=== PATIENT | female | born 1955 | race Caucasian/White ===

== ENCOUNTER 2022-09-17 06:13 | Emergency (ER) | payer MEDICARE ==
[~2022-09-17] VITALS: Ht 154.9 cm; Wt 84.0 kg
[2022-09-17 06:19] VITALS: BP 167/97
[2022-09-17] MEDS ORDERED: CLEOCIN300 MG PO (06:26)
[2022-09-17] MEDS ORDERED: LORTAB 1010 MG PO (06:26)
[2022-09-17 06:30] VITALS: BP 183/94
[2022-09-17 06:33] VITALS: BP 183/94
== END 2022-09-17 06:45 | disposition home or self-care (01) ==
LOC: ED 06:13
DX: K04.7 Periapical abscess without sinus (principal); S02.5XXA Fracture of tooth (traumatic), initial encounter for closed fracture; X58.XXXA Exposure to other specified factors, initial encounter; I10 Essential (primary) hypertension; J45.909 Unspecified asthma, uncomplicated; Z98.84 Bariatric surgery status